=== PATIENT | female | born 1995 | race Caucasian/White ===

== ENCOUNTER 2017-12-26 07:10 | Inpatient (IN) | payer MEDICAID, SELFPAY ==
[2017-12-26 07:43] VITALS: BMI 30.2
[2017-12-26] MEDS: Lactated Ringers 1,000 ML 50 ML IV ×3 (08:17→18:47)
[2017-12-26 08:29] LABS: Hematocrit 36.9 % (37-47); Hemoglobin 13.1 g/dl (12.0-15.0); Mean Corp Hgb Conc 35.5 g/gl (32-36); Mean Corpuscular Hgb 32.9 pg (27.0-32.0); Mean Corpuscular Volume 92.7 fL (81-99); Mean Platelet Vol. 8.8 fl (6.2-12.0); Platelet Count 151 K/mm3 (150-450); RBC Distribution Width CV 13.4 % (11.6-14.6); RBC Distribution Width SD 44.6 fl (35.1-43.9); Red Blood Count 3.98 M/mm3 (4.2-5.4); White Blood Count 10.1 K/mm3 (4.4-11.0)
[2017-12-26 08:32] LABS: Scan Indicated on CBC? Y/N NO
[2017-12-26] MEDS: 0.9% Normal Saline 100 ML IV.SOLN. INTRA-UTER (10:10)
--- NOTE | 2017-12-26 10:14 | PCM.HP.OB ---
- Problem List (1) Status: Acute Qualifiers: Weeks of gestation: 40 weeks Qualified Code(s): Z3A.40 - 40 weeks gestation of (2) Genital herpes affecting in third trimester Status: Acute (3) PROM (premature rupture of membranes) Status: Acute History Date of Admission: 12/26/17 Final VIRAL: 12/25/17 Gestational age: 40 Weeks and 1 Days History of this : 22 year old female. at 40w1d by LMP, confirmed by first trimester ultrasound. Presented to L&D after SROM at home for large amount of clear fluid at 0550 this am. Denied any contractions prior to rupture or vaginal bleeding. After rupture started having contractions that were mild and infrequent. Here with FOB walking halls. Upon admission grossly rupture for clear fluid and admitted to L&D. OB Hx: History of genital herpes, no active infection, Acyclovir prophylaxis. Allergies No Known Allergies Allergy (Verified 12/26/17 07:53) Current Medications Acetaminophen (Tylenol) 325 - 650 mg PO Q4H PRN PRN PRN Reason: PAIN OR FEVER >100.4F Al Hydroxide/Mg Hydroxide (Mylanta Ii) 15 - 30 ml PO Q4H PRN PRN PRN Reason: INDIGESTION Citric Acid/Sodium Citrate (Bicitra) 30 ml PO UD PRN Lactated Ringer's () 1,000 mls @ 50 mls/hr IV .Q20H [facility] Last Admin: 12/26/17 08:17 Dose: 50 mls/hr Nalbuphine HCl (Nubain) 5 - 10 mg IV Q3H PRN PRN PRN Reason: PAIN (4-10/10) Ondansetron HCl (Zofran) 4 mg IV Q8H PRN PRN PRN Reason: NAUSEA Promethazine HCl (Phenergan (Ll)) 6.25 - 12.5 mg IV Q4H PRN PRN; Protocol PRN Reason: IF NAUSEA PERSISTS Sodium Chloride () 5 - 15 ml IV UD [facility] Last Admin: 12/26/17 09:49 Dose: Not Given Review of Systems Constitutional: Denies: Chills, Fever, Weight Change Cardiovascular: Denies: Chest Pain, Palpitations Respiratory: Denies: Cough, Shortness of breath at rest, Sputum production Gastrointestinal: Denies: Abdominal Pain, Nausea, Vomiting Genitourinary: Denies: Dysuria Physical Exam Vitals: Labs: HBsAG negative HIV negative Rubella Immune A positive, antibody screen negative RPR negative GC/CT negative Placenta anterior fundal General: Alert, Oriented x3, No apparent distress Cardiovascular: Regular rate, Regular Rhythm, No murmurs Lungs: Clear to auscultation, No rhonchi, No wheeze Abdomen: Bowel Sounds Present, Gravid Extremities:: No edema, Deep tendon reflexes - +2/4 bilateral patellar, clonus negative Presentation: Cephalic Cervix Dilation (cm): 2 - Ba bulb catheter placed with sterile speculum exam. Cephalic by U/S Station: -3 Assessment/Plan Active and Suspected Problems (Acute) Genital herpes affecting in third trimester (Acute) Genital herpes affecting , antepartum (Acute) PROM (premature rupture of membranes) (Acute) A: 22 year old at 40w1d by LMP in Early Labor Premature Rupture of membranes FHT Category 1 Tracing History of Genital Herpes P: 1)Admit to L&D for routine orders. 2) Ba catheter for cervical ripening due to PROM. Reviewed risks and benefits. Discussed Active vs. expectant management with PROM, risks and benefits. At this time patient would like to wait for Pitocin augmentation and declines. 3) Planning epidural for pain management 4) Acyclovir 400mg PO BID for HSV prophylaxis. Will continue. No active lesions present 5) notified of admission and collaborative physician Renetta Mullins CNM
--- NOTE | 2017-12-26 10:26 | HP.PCM_ITS ---
- Problem List (1) Status: Acute Qualifiers: Weeks of gestation: 40 weeks Qualified Code(s): Z3A.40 - 40 weeks gestation of (2) Genital herpes affecting in third trimester Status: Acute (3) PROM (premature rupture of membranes) Status: Acute History Date of Admission: 12/26/17 Final VIRAL: 12/25/17 Gestational age: 40 Weeks and 1 Days History of this : 22 year old female. at 40w1d by LMP, confirmed by first trimester ultrasound. Presented to L&D after SROM at home for large amount of clear fluid at 0550 this am. Denied any contractions prior to rupture or vaginal bleeding. After rupture started having contractions that were mild and infrequent. Here with FOB walking halls. Upon admission grossly rupture for clear fluid and admitted to L&D. OB Hx: History of genital herpes, no active infection, Acyclovir prophylaxis. Allergies No Known Allergies Allergy (Verified 12/26/17 07:53) Current Medications Acetaminophen (Tylenol) 325 - 650 mg PO Q4H PRN PRN PRN Reason: PAIN OR FEVER >100.4F Al Hydroxide/Mg Hydroxide (Mylanta Ii) 15 - 30 ml PO Q4H PRN PRN PRN Reason: INDIGESTION Citric Acid/Sodium Citrate (Bicitra) 30 ml PO UD PRN Lactated Ringer's () 1,000 mls @ 50 mls/hr IV .Q20H [facility] Last Admin: 12/26/17 08:17 Dose: 50 mls/hr Nalbuphine HCl (Nubain) 5 - 10 mg IV Q3H PRN PRN PRN Reason: PAIN (4-10/10) Ondansetron HCl (Zofran) 4 mg IV Q8H PRN PRN PRN Reason: NAUSEA Promethazine HCl (Phenergan (Ll)) 6.25 - 12.5 mg IV Q4H PRN PRN; Protocol PRN Reason: IF NAUSEA PERSISTS Sodium Chloride () 5 - 15 ml IV UD [facility] Last Admin: 12/26/17 09:49 Dose: Not Given Review of Systems Constitutional: Denies: Chills, Fever, Weight Change Cardiovascular: Denies: Chest Pain, Palpitations Respiratory: Denies: Cough, Shortness of breath at rest, Sputum production Gastrointestinal: Denies: Abdominal Pain, Nausea, Vomiting Genitourinary: Denies: Dysuria Physical Exam Vitals: Labs: HBsAG negative HIV negative Rubella Immune A positive, antibody screen negative RPR negative GC/CT negative Placenta anterior fundal General: Alert, Oriented x3, No apparent distress Cardiovascular: Regular rate, Regular Rhythm, No murmurs Lungs: Clear to auscultation, No rhonchi, No wheeze Abdomen: Bowel Sounds Present, Gravid Extremities:: No edema, Deep tendon reflexes - +2/4 bilateral patellar, clonus negative Presentation: Cephalic Cervix Dilation (cm): 2 - Ba bulb catheter placed with sterile speculum exam. Cephalic by U/S Station: -3 Assessment/Plan Active and Suspected Problems (Acute) Genital herpes affecting in third trimester (Acute) Genital herpes affecting , antepartum (Acute) PROM (premature rupture of membranes) (Acute) A: 22 year old at 40w1d by LMP in Early Labor Premature Rupture of membranes FHT Category 1 Tracing History of Genital Herpes P: 1)Admit to L&D for routine orders. 2) Ba catheter for cervical ripening due to PROM. Reviewed risks and benefits. Discussed Active vs. expectant management with PROM, risks and benefits. At this time patient would like to wait for Pitocin augmentation and declines. 3) Planning epidural for pain management 4) Acyclovir 400mg PO BID for HSV prophylaxis. Will continue. No active lesions present 5) notified of admission and collaborative physician Renetta Mullins CNM
[2017-12-26] MEDS: fentaNYL-bupivacaine (epidural) 100 ML BAG EPIDURAL ×2 (15:57→22:30)
[2017-12-26] MEDS: Ondansetron 4 MG/2 ML Vial IV (17:34)
--- NOTE | 2017-12-26 21:44 | PCM.PN.OB ---
Patient Problems: Active and Suspected Problems (Acute) Genital herpes affecting in third trimester (Acute) Genital herpes affecting , antepartum (Acute) PROM (premature rupture of membranes) (Acute) Subjective: Doing well throughout the day, rested. FOB and family at bedside. Comfortable with epidural Objective: FHT:135, moderate variability, accels, variable decel, Category 2 TOCO: every 2-4 minutes, strong to palpation, lasting 60-80 seconds Cervix: 7cm/90%/-1 - Physical Exam Weight: 187 lb 6.287 oz Body Mass Index (BMI) 30.2 Intake and Output for Last 24 Hours 12/24/17 12/25/17 12/26/17 23:59 23:59 23:59 Intake Total 2663 / 2663 Output Total 2200 / 2200 Balance 463 / 463 Laboratory Tests Past 24 Hrs 12/26/17 12/26/17 08:17 08:17 WBC 10.1 RBC 3.98 L Hgb 13.1 Hct 36.9 L MCV 92.7 MCH 32.9 H MCHC 35.5 RDW 13.4 RDW Differential 44.6 H Plt Count 151 MPV 8.8 Blood Type A POSITIVE Antibody Screen NEGATIVE Medical Necessity - Tobacco Use Smoking Status: Never smoker Assessment/Plan Active and Suspected Problems (Acute) Genital herpes affecting in third trimester (Acute) Genital herpes affecting , antepartum (Acute) PROM (premature rupture of membranes) (Acute) A:Active Labor, progressing Category 2 FHT P: 1) Continue with expectant management. Patient declines Pitocin augmentation 2) Epidural effective 3) Side lying release and positional changes with peanut ball
[2017-12-27] VITALS (20 sets, daily range): BP systolic 101–128; BP diastolic 46–78; PULSE 75–122; RESP 16–22; TEMP 35.8–36.8; O2SAT 95–99
[2017-12-27] MEDS: fentaNYL-bupivacaine (epidural) 100 ML BAG EPIDURAL ×2 (01:58→07:58)
--- NOTE | 2017-12-27 04:48 | PCM.PN.OB ---
Patient Problems: Active and Suspected Problems (Acute) Genital herpes affecting in third trimester (Acute) Genital herpes affecting , antepartum (Acute) PROM (premature rupture of membranes) (Acute) Subjective: Sitting up and resting in bed, comfortable with epidural. Family at bedside. Objective: FHT 135, minimal variability, accels, no decels, Category 1 TOCO: every 1-4 minutes, strong Cervix: Anterior lip/100%/0 - Physical Exam Weight: 187 lb 6.287 oz Body Mass Index (BMI) 30.2 Intake and Output for Last 24 Hours 12/25/17 12/26/17 12/27/17 23:59 23:59 23:59 Intake Total 2663 / 2663 Output Total 2200 / 2200 Balance 463 / 463 Laboratory Tests Past 24 Hrs 12/26/17 12/26/17 08:17 08:17 WBC 10.1 RBC 3.98 L Hgb 13.1 Hct 36.9 L MCV 92.7 MCH 32.9 H MCHC 35.5 RDW 13.4 RDW Differential 44.6 H Plt Count 151 MPV 8.8 Blood Type A POSITIVE Antibody Screen NEGATIVE Medical Necessity - Tobacco Use Smoking Status: Never smoker Assessment/Plan Active and Suspected Problems (Acute) Genital herpes affecting in third trimester (Acute) Genital herpes affecting , antepartum (Acute) PROM (premature rupture of membranes) (Acute) A: Active Labor, progressing Category 1 FHT P: 1) Expectant management. Anticipate vaginal delivery soon. 2) Positional changes
[2017-12-27] MEDS: Lactated Ringers 1,000 ML 50 ML IV ×3 (05:29→07:21)
--- NOTE | 2017-12-27 05:55 | PCM.PN.OB ---
Patient Problems: Active and Suspected Problems (Acute) Genital herpes affecting in third trimester (Acute) Genital herpes affecting , antepartum (Acute) PROM (premature rupture of membranes) (Acute) Subjective: Resting in bed. Family at bedside. Feeling slight pressure. Objective: Temperature 99.4 Cervix: complete/0 TOCO: every 2-3 minutes FHT: 165, moderate variability, accels, late decels after pushing - Physical Exam Weight: 187 lb 6.287 oz Body Mass Index (BMI) 30.2 Intake and Output for Last 24 Hours 12/25/17 12/26/17 12/27/17 23:59 23:59 23:59 Intake Total 2663 / 2663 Output Total 2200 / 2200 Balance 463 / 463 Laboratory Tests Past 24 Hrs 12/26/17 12/26/17 08:17 08:17 WBC 10.1 RBC 3.98 L Hgb 13.1 Hct 36.9 L MCV 92.7 MCH 32.9 H MCHC 35.5 RDW 13.4 RDW Differential 44.6 H Plt Count 151 MPV 8.8 Blood Type A POSITIVE Antibody Screen NEGATIVE Medical Necessity - Tobacco Use Smoking Status: Never smoker Assessment/Plan Active and Suspected Problems (Acute) Genital herpes affecting in third trimester (Acute) Genital herpes affecting , antepartum (Acute) PROM (premature rupture of membranes) (Acute) A:Active Labor, second stage Category 2 FHT P: 1) Anticipate vaginal delivery soon 2) Positional changes with pushing
--- NOTE | 2017-12-27 06:28 | PCM.PN.OB ---
Patient Problems: Active and Suspected Problems (Acute) Genital herpes affecting in third trimester (Acute) Genital herpes affecting , antepartum (Acute) PROM (premature rupture of membranes) (Acute) Subjective: Positional changes side to side while pushing. O2 via face mask. Family at bedside. Objective: Temp 100.2 FHT: 175, minimal variability, periodic late decelerations TOCO: every 1-3 minutes, strong variability Cervix: complete and pushing, 0 station 02 via face mask. 500ml LR bolus - Physical Exam Weight: 187 lb 6.287 oz Body Mass Index (BMI) 30.2 Intake and Output for Last 24 Hours 12/25/17 12/26/17 12/27/17 23:59 23:59 23:59 Intake Total 2663 / 2663 Output Total 2200 / 2200 Balance 463 / 463 Laboratory Tests Past 24 Hrs 12/26/17 12/26/17 08:17 08:17 WBC 10.1 RBC 3.98 L Hgb 13.1 Hct 36.9 L MCV 92.7 MCH 32.9 H MCHC 35.5 RDW 13.4 RDW Differential 44.6 H Plt Count 151 MPV 8.8 Blood Type A POSITIVE Antibody Screen NEGATIVE Medical Necessity - Tobacco Use Smoking Status: Never smoker Assessment/Plan Active and Suspected Problems (Acute) Genital herpes affecting in third trimester (Acute) Genital herpes affecting , antepartum (Acute) PROM (premature rupture of membranes) (Acute) A: Active Labor, second stage Category 2 FHT P: 1) notified of elevated temperature, Category 2 tracing with tachycardia and late decelerations. Membranes ruptured 25hr. 2) Tylenol 1000mg PO once 3) Continue 02 via face mask and 500ml bolus LR IV 4) Epidural turned off due to decreased pushing effort and not feeling pressure during pushing efforts. Patient agrees with plan.
[2017-12-27] MEDS: Acetaminophen 500 MG Tablet 1000 MG PO (06:34)
--- NOTE | 2017-12-27 09:00 | PCM.PN.BLA ---
Progress Note Addendum: No descent noted with pushing effort. Persistent retractible thin cervical lip noted. Patient requesting LTCS at this time. Dr. Garg notified. Patient being prepped for LTCS. Transfer of care to medical management. Hemalatha Ty CNM
--- NOTE | 2017-12-27 09:03 | PCM.PN.BLA ---
Progress Note S: Patient coping well with contractions. Patient continues to use nitrous oxide for pain relief. Starting to feel urge to bear down and push. O: VSS, Afebrile FHT baseline 130, moderate variability, + accels, variable and early decels occasionally Ctx q 3-5 minutes, palpate moderate to strong SVE = 7-8/90/-1, AROM for meconium fluid A: 22 y/o , Transition stage of labor, Cat I-II FHT P: 1) Continue with present management 2) Anticipate . Hemalatha MILES
[2017-12-27] MEDS: Sodium Citrate/Citric Acid 30 ML UDC PO (09:11)
--- NOTE | 2017-12-27 09:12 | PN_ITS ---
Progress Note pt was seen at bedside, counseled on arrest of descent- deep transverse positions with significant caput noted. pt was counseled on need for primary c/ s at this time. reviewed risks of primary cs including but not limted to bleeding, infection, injury to pelvic structures including bladder, bowel, ureters, risks of cervical extension etc. pt verbalized understanding.
[2017-12-27] MEDS: Cefazolin 2 GM in 0.9% Normal Saline 100 ML IV (09:26)
[2017-12-27] MEDS: Methylergonovine 0.2 MG/ML Ampul IM (09:33)
[2017-12-27] MEDS: Oxytocin 30 units/NS 500 ml 30 UNITS/500 ML IV.SOLN 167 UNITS IV (09:41)
--- NOTE | 2017-12-27 10:14 | OP.PCM_ITS ---
Delivery Classification: ABE Final VIRAL: 12/25/17 Gestational age: 40 Weeks and 2 Days Indications: 22yo @ 40.2 wks with arrest of descent - deep transverse arrest with caput. Indications for : Arrrest of Descent Description of Procedure: Surgeon: Dr. Omayra Roberts Practical Nursing Faculty: MAHIN Becker Practical Nursing Faculty: Renetta Arizmendi, MS3 Preoperative diagnosis: 40.2 wks gestation-arrest of descent, deep transverse arrest Postoperative diagnosis: same, live male Findings: push up from below needed to disengage head. Male born without complications- 9lb 7oz. apgars 8/9 Anesthesia: Epidural and General anesthesia Complications: Patient feeling pain - inadequate pain relief with epidural in place- decision for general anesthesia made. uterine atony w/o hemorrhage - Methergine x 1 given. Estimated blood loss:800 Implantable devices: None PRE OP abx: Ancef 2g and zithromax 500mg IV Operative note: After informed consent was obtained the patient was taken the operating room she was given spinal anesthesia. She was then placed in the supine position. She was prepped and draped in the normal sterile fashion. Anesthesia was found to be adequate. At this time a Pfannenstiel skin incision was made with a knife was carried down to the underlying layer of the fascia. The fascial incision was then extended laterally using curved Munoz scissor. Tensions was then turned to the superior aspect of the fascial edge was grasped with 2 straight [place] clamps tented up and the rectus muscle dissected off sharply using curved Munoz scissor. Attention was then turned to the inferior aspect where again Isaiah clamps were placed in the rectus muscles were tented up and the fascia was dissected off sharply using the curved Munoz scissor. Rectus muscles were then in the midline bluntly and peritoneum was entered bluntly. Gentle opposing traction was placed. At this time the vesicouterine peritoneum was identified. Scalpel was used to make a uterine incision in a low transverse fashion. The uterus was then entered bluntly gentle opposing traction was placed to extend this incision. Push up from below to disengage head. 's head was brought to the uterine incision was delivered atraumatically. Cord was clamped and cut infant was handed to the waiting nursery team. The Placenta was removed from the uterus. The uterus was then removed from the abdominal cavity. The uterus was cleared of all clots and debris using a lap. uterine atony noted- methergine x 1 given with good response. At this time the uterine incision was reapproximated using #1 Vicryl in a running locked fashion. Hemostasis was appreciated. Posterior cul-de-sac was then cleared of all clots and debris. Uterus was placed back in the abdominal cavity. Gutters were cleared of all clots and debris. Uterine incision was reevaluated and noted to be of excellent hemostasis. Vish placed. At this time the peritoneum was grasped with Kellys reapproximated using #2 Vicryl suture in a running fashion. Muscles then reapproximated using #2 Vicryl in a interrupted mattress suture fashion. Vish placed. Fascia was then reapproximated using #1 Vicryl in a running fashion. Subcu layer was reapproximated with #2 0 plain gut suture in an interrupted fashion. Subcu layer was closed using 4-0 Monocryl in a subcu fashion. Vish placed. Dry sterile dressing was applied. Instrument lap needle count correct ?2. Anticipated normal postoperative course. Amniotic Membrane Rupture Type: Artificial Amniotic Fluid Description: Clear Placenta Disposition: [facility] Drain: Ba to straight drain Cord Entanglement: None Nuchal Cord Compression: Without compression Cord Vessel Description: 3 Vessels Esitmated Blood Loss (ml): 800 Gender: Male (1 minute): 8 (5 minute): 9 Delayed cord clamping: No Pre-op Antibiotic Given: - - zithromax 500mg IV Pt instructed on risks of surgery: Bleeding, Anesthesia Risks, Infection, Injury to surrounding structure(s) including bowel and bladder Complications: None - Admit VTE Documentation VTE Present on Admission: Yes VTE Mechan Device Prophylaxis: SCD's VTE Pharm Prophylaxis ordered?: No
[2017-12-27] MEDS: Ketorolac 30 MG/ML Syringe IV ×3 (10:20→21:57)
[2017-12-27] MEDS: Lactated Ringers 1,000 ML 100 ML IV ×2 (10:30→19:21)
--- NOTE | 2017-12-27 14:16 | NURSING ---
This director of emergency nursing reviewed the charting completed by Maribell Olvera student nurse and it is complete.
[2017-12-27] MEDS: Senna/Docusate Sodium 1 Tablet PO (22:02)
[2017-12-28] VITALS (8 sets, daily range): BP systolic 108–122; BP diastolic 55–68; PULSE 76–116; RESP 16–20; TEMP 36.3–37.4; O2SAT 96–100
[2017-12-28] MEDS: Ketorolac 30 MG/ML Syringe IV ×3 (03:23→23:50)
[2017-12-28 05:01] LABS: Hematocrit 28.9 % (37-47); Hemoglobin 10.1 g/dl (12.0-15.0); Mean Corp Hgb Conc 34.9 g/gl (32-36); Mean Corpuscular Hgb 33.3 pg (27.0-32.0); Mean Corpuscular Volume 95.4 fL (81-99); Mean Platelet Vol. 8.3 fl (6.2-12.0); Platelet Count 107 K/mm3 (150-450); RBC Distribution Width CV 13.4 % (11.6-14.6); RBC Distribution Width SD 44.4 fl (35.1-43.9); Red Blood Count 3.03 M/mm3 (4.2-5.4); White Blood Count 15.1 K/mm3 (4.4-11.0)
[2017-12-28 05:02] LABS: Scan Indicated on CBC? Y/N NO
--- NOTE | 2017-12-28 08:05 | PCM.PN.OB ---
Patient Problems: Active and Suspected Problems (Acute) Genital herpes affecting in third trimester (Acute) Genital herpes affecting , antepartum (Acute) PROM (premature rupture of membranes) (Acute) Subjective: pt seen at bedside, doing well. pt reports good pain control. lochia mild. pt denies flatus. pt denies N/V, CP, SOB, dizziness. Breast feeding well - Physical Exam General: Alert, Oriented x3 Abdomen: Soft, Non-Distended, - - fundus firm. incision dressing dry and intact Extremities: No Calf Tenderness Vital Signs Temp Pulse Resp BP Pulse Ox 98.2 F 76 18 108/56 L 98 12/28/17 04:00 12/28/17 06:00 12/28/17 06:00 12/28/17 04:00 12/28/17 06:00 Oxygen Delivery Method Room Air Weight: 85 kg Body Mass Index (BMI) 30.2 Intake and Output for Last 24 Hours 12/26/17 12/27/17 12/28/17 23:59 23:59 23:59 Intake Total 2663 / 2663 2878 / 2878 Output Total 2200 / 2200 1974 / 1974 800 / 800 Balance 463 / 463 903 / 903 -800 / -800 Laboratory Tests Past 24 Hrs 12/28/17 04:50 WBC 15.1 H RBC 3.03 L Hgb 10.1 L Hct 28.9 L MCV 95.4 MCH 33.3 H MCHC 34.9 RDW 13.4 RDW Differential 44.4 H Plt Count 107 L MPV 8.3 Medical Necessity - Tobacco Use Smoking Status: Never smoker Assessment/Plan Active and Suspected Problems (Acute) Genital herpes affecting in third trimester (Acute) Genital herpes affecting , antepartum (Acute) PROM (premature rupture of membranes) (Acute) POD#1, doing well routine care pain mgmt dc mckeon ambulation
[2017-12-28] MEDS: 0.9% Saline Lock 10 ML Syringe IV (10:58)
[2017-12-28] MEDS: oxyCODONE 5 MG Tablet PO ×3 (11:38→22:38)
--- NOTE | 2017-12-28 11:55 | NURSING ---
1115 mckeon out 200 cc urine, up to bathroom nely care done
[2017-12-29 01:45] VITALS: BP 111/57; PULSE 96; RESP 16; TEMP 36.3; O2SAT 96
[2017-12-29] MEDS: oxyCODONE 5 MG Tablet PO ×5 (03:57→22:03)
[2017-12-29] MEDS: Ketorolac 30 MG/ML Syringe IV (05:28)
[2017-12-29] MEDS: Senna/Docusate Sodium 1 Tablet PO (05:44)
--- NOTE | 2017-12-29 08:18 | PCM.PN.OB ---
Patient Problems: Active and Suspected Problems (Acute) Genital herpes affecting in third trimester (Acute) Genital herpes affecting , antepartum (Acute) PROM (premature rupture of membranes) (Acute) Subjective: pt seen at bedside, doing well. pt reports good pain control. Lochia mild. Voiding without difficulty. BM x 2. Breast feeding well. - Physical Exam General: Alert, Oriented x3 Abdomen: Soft, - - fundus firm. Incision site dressing dry and intact. Extremities: No Calf Tenderness Vital Signs Temp Pulse Resp BP Pulse Ox 97.4 F L 96 16 111/57 L 96 12/29/17 01:45 12/29/17 01:45 12/29/17 01:45 12/29/17 01:45 12/29/17 01:45 Oxygen Delivery Method Room Air Weight: 85 kg Body Mass Index (BMI) 30.2 Intake and Output for Last 24 Hours 12/27/17 12/28/17 12/29/17 23:59 23:59 23:59 Intake Total 2878 / 2878 Output Total 1974 1300 / 1300 600 / 600 Balance 903 / 903 -1300 / -1300 -600 / -600 Medical Necessity - Tobacco Use Smoking Status: Never smoker Assessment/Plan Active and Suspected Problems (Acute) Genital herpes affecting in third trimester (Acute) Genital herpes affecting , antepartum (Acute) PROM (premature rupture of membranes) (Acute) POD#2, doing well routine care pain mgmt ambulation likely dc home tmrw
--- NOTE | 2017-12-29 08:28 | DCINST_ITS ---
Discharge Diet: No Restrictions Discharge Activity: Return to Normal Activity, May Not Drive - for 2 weeks, May not drive while taking narcotic pain medications., May Shower, May Take a Tub Bath - in 7 days. May resume sexual activity in: 4-6 weeks Lifting Restrictions: 20 pounds Additional Activity Instructions:: Nothing in the vagina for 4-6 weeks. You may return to work/school in 6 weeks. Call your doctor if your incision/area has: Continuous Slow Oozing, Sudden Increased Bleeding, Increased Pain/ Swelling, Increased Redness, Foul Smelling Discharge Call your doctor if you observe: Fever of 101 or Higher, Using more than one pad per hour - for 2 hours Suture Line Care: Avoid Pulling/Pushing, Avoid Pinching/Bending Cleanse incision/area with: Keep Dressing Clean & Dry Additional Instructions: If you experience any of the following, contact your healthcare provider. * Bleeding that soaks a pad every hour for 2 hours * Fever 100.4 or higher * Unrelieved incision or abdominal pain * Swelling, redness, discharge or bleeding from your incision or episiotomy site * Your incision begins to separate * Problems urinating (including inability to urinate or burning while urinating) . * Visual changes * Severe headache * Flu-like symptoms * Pain or redness in one of both of your breasts * Pain, warmth, tenderness or swelling in your legs, especially the calf area * Frequent nausea and vomiting * Symptoms of depression or anxiety If you experience any of the following, call 911 or go to the nearest Emergency Room. * Chest pain * Problems breathing * Seizure activity * Partial or complete paralysis of a body part, slurred speech, weakness or drooping of the face, or a sudden inability to walk or hold your balance Allergies/Adverse Reactions: Allergies No Known Allergies Allergy (Verified 12/26/17 07:53) Medications to take at Discharge Acyclovir 400 mg PO BID 12/26/17 Albuterol Inhaler [Ventolin Hfa] 1 inhaler INHALATION PRN PRN 12/26/17 Vit Calc,Iron,Folic [ Vitamins] 1 tab PO DAILY 12/26/17 Naproxen [Naprosyn] 250 - 500 mg PO Q8H PRN PRN #60 tab 12/29/17 Oxycodone HCl/Acetaminophen [Percocet 5/325] 1 tablet PO Q6H PRN PRN 7 Days #28 tablet 12/29/17 Senna/Docusate Sodium [Senokot-S] 1 tab PO DAILY PRN #30 tab 12/29/17 SimETHICONE [Mylicon] 80 mg PO PCHS PRN #30 tab 12/29/17 The following prescriptions were given: Oxycodone HCl/Acetaminophen [Percocet 5/325] 1 tablet PO Q6H PRN PRN 7 Days #28 tablet PRN Reason: Pain Naproxen [Naprosyn] 250 - 500 mg PO Q8H PRN PRN #60 tab PRN Reason: Mild Pain (-12/18) Senna/Docusate Sodium [Senokot-S] 1 tab PO DAILY PRN #30 tab PRN Reason: Constipation SimETHICONE [Mylicon] 80 mg PO PCHS PRN #30 tab PRN Reason: Indigestion/stomach pain Follow-Up: Call to make an appointment with your doctor for an incision check in 1-2 weeks. You will also need a 6 week post- follow up appointment. Please Follow Up With: Omayra Roberts MD - Call to make an appointment for an incision check in 1-2 [phone] When: You will need a post- check in 6 weeks. Primary Care Physician: Emily Herman,Out of [Primary Care Provider] -
[2017-12-29 08:54] VITALS: BP 116/64; PULSE 99; RESP 16; TEMP 36.6; O2SAT 99
[2017-12-29 13:24] VITALS: BP 127/73; PULSE 110; RESP 16; TEMP 36.7; O2SAT 98
[2017-12-29] MEDS: Hydrocortisone 2.5% Crm 1 APPLIC TOPICAL (16:49)
[2017-12-29 21:15] VITALS: BP 131/80; PULSE 113; RESP 18; TEMP 36.2
[2017-12-29] MEDS: Naproxen 250 MG Tablet PO (22:02)
[2017-12-30 02:00] VITALS: BP 115/61; PULSE 92; RESP 16; TEMP 36.2
--- NOTE | 2017-12-30 07:23 | PCM.PN.OB ---
Patient Problems: Active and Suspected Problems (Acute) Genital herpes affecting in third trimester (Acute) Genital herpes affecting , antepartum (Acute) PROM (premature rupture of membranes) (Acute) Subjective: pt seen at bedside, doing well. pt reports good pain control. lochia mild. breast feeding. denies CP, SOB, dizziness. - Physical Exam General: Alert, Oriented x3 Abdomen: Soft, - - Fundus firm, incision site dry and intact. Extremities: No Calf Tenderness Vital Signs Temp Pulse Resp BP Pulse Ox 97.2 F L 92 16 115/61 98 12/30/17 02:00 12/30/17 02:00 12/30/17 02:00 12/30/17 02:00 12/29/17 13:24 Oxygen Delivery Method Room Air Weight: 85 kg Body Mass Index (BMI) 30.2 Intake and Output for Last 24 Hours 12/28/17 12/29/17 12/30/17 23:59 23:59 23:59 Output Total 1300 / 1300 600 / 600 Balance -1300 / -1300 -600 / -600 Medical Necessity - Tobacco Use Smoking Status: Never smoker Assessment/Plan Active and Suspected Problems (Acute) Genital herpes affecting in third trimester (Acute) Genital herpes affecting , antepartum (Acute) PROM (premature rupture of membranes) (Acute) POD#3, doing well routine care dc home
--- NOTE | 2017-12-30 07:24 | PCM.DC.BLA ---
Discharge Summary Date of Admission: 12/26/17 Date of Discharge: 12/30/17 Summary: pt was admitted to L&D with SROM at 40.1 wks gestation. pt progressed to fully dilated and pushed for approximately 3.5 hours intermittently with arrest of descent in deep transverse arrest. pt underwent primary cs that was uncomplicated. Delivered live infant weighing 9lb7oz. pt had uncomplicated post op course and was discharged home on POD#3.
[2017-12-30 08:00] VITALS: BP 116/65; PULSE 105; RESP 16; TEMP 36.1; O2SAT 97
[2017-12-30] MEDS: Senna/Docusate Sodium 1 Tablet PO (08:24)
[2017-12-30] MEDS: Acetaminophen 500 MG Tablet 1000 MG PO (08:24)
[2017-12-30 11:00] VITALS: BP 128/71; PULSE 105; RESP 16; TEMP 36.1; O2SAT 95
== END 2017-12-30 11:20 | disposition home or self-care (01) | DRG 371 ==
PROVIDERS: Obstetrics & Gynecology; Admitting Provider Obstetrics & Gynecology; Visit Provider Obstetrics & Gynecology
DX: O42.12 Full-term premature rupture of membranes, onset of labor more than 24 hours following rupture (principal); O98.32 Other infections with a predominantly sexual mode of transmission complicating childbirth; A60.00 Herpesviral infection of urogenital system, unspecified; O76 Abnormality in fetal heart rate and rhythm complicating labor and delivery; O77.0 Labor and delivery complicated by meconium in amniotic fluid; O64.0XX0 Obstructed labor due to incomplete rotation of fetal head, not applicable or unspecified; O75.89 Other specified complications of labor and delivery; Z79.899 Other long term (current) drug therapy; Z3A.40 40 weeks gestation of pregnancy; Z37.0 Single live birth
CPT/HCPCS: 59025; 59050; 76815; 85027; 86850; 86900; 99218; J7120; A4216; G0378; J2405

== ENCOUNTER 2018-01-01 13:10 | Outpatient (CLI) | payer MEDICAID, SELFPAY ==
--- NOTE | 2018-01-01 14:39 | OB.TRI.HP_ITS ---
History of Present Illness Date of Service: 01/01/18 Was patient seen by the physician?: Yes Reason For Visit: LACT CONSULTATION History of Present Illness: Patient presents with LE & labial swelling. She states it got worse overnight. Patient is having regular BM's. Her VB is stable. Home Medications Medication Instructions Recorded Acyclovir 400 mg PO BID 12/26/17 Albuterol Inhaler [Ventolin Hfa] 1 inhaler INHALATION PRN PRN 12/26/17 Vit Calc,Iron,Folic 1 tab PO DAILY 12/26/17 [ Vitamins] Naproxen [Naprosyn] 250 - 500 mg PO Q8H PRN PRN #60 tab 12/29/17 Oxycodone HCl/Acetaminophen 1 tablet PO Q6H PRN PRN 7 Days #28 12/29/17 [Percocet 5/325] tablet Senna/Docusate Sodium [Senokot-S] 1 tab PO DAILY PRN #30 tab 12/29/17 SimETHICONE [Mylicon] 80 mg PO PCHS PRN #30 tab 12/29/17 Allergies No Known Allergies Allergy (Verified 12/26/17 07:53) Physical Exam General: Alert, Oriented x3 Abdomen: Soft, Non Tender, Non-Distended - macular rash on abdomen Extremities:: Other - pitting bilateral lower extremity edema; vulva - edema - left more swollen than right, tender to touch, no erythema, small clear papules , no ulcerarations; vaginal introitus normal Impression/Plan 22yo female with LE & vulvar swelling s/p 12/27 No evidence DVT as edema equal, no calf tenderness, negative homans. Vulvar swelling likely related to dependent edema. Rx acyclovir given as patient with papules & h/o genital HSV. This may be a atypical hsv presentation. Abdominal rash - likely irritation from drape, rx triamcinolone ointment given. Patient to call if swelling doesn't improve or develops other concerns.
== END 2018-01-01 14:10 | disposition home or self-care (01) ==
LOC: WPOUT 14:07 → WP 14:08
PROVIDERS: Visit Provider Obstetrics & Gynecology
DX: Z39.1 Encounter for care and examination of lactating mother (principal); O90.89 Other complications of the puerperium, not elsewhere classified; R60.0 Localized edema; O98.33 Other infections with a predominantly sexual mode of transmission complicating the puerperium; A60.00 Herpesviral infection of urogenital system, unspecified
CPT/HCPCS: 96152

== ENCOUNTER 2018-01-04 14:36 | Emergency (ER) | payer MEDICAID, SELFPAY ==
[2018-01-04 14:36] VITALS: BP 137/92; PULSE 94; RESP 16; TEMP 36.8; O2SAT 97; BMI 28.2
[2018-01-04 14:51] VITALS: BP 119/67; PULSE 78; RESP 16; O2SAT 98
--- NOTE | 2018-01-04 15:05 | CT_ITS ---
STUDY: CT ABDOMEN AND PELVIS WITH CONTRAST REASON FOR EXAM: Female, 22 years old. The absence of a wound. RADIATION DOSAGE (If Supplied By Facility): CTDIvol = ( 12.53 ) mGy, DLP = ( 926.18 ) mGycm TECHNIQUE: Transaxial images were obtained from the dome of the diaphragm to the symphysis pubis without oral contrast. 100 ml of Isovue 300 contrast was administered. Sagittal and coronal images were reconstructed. Individualized dose optimization techniques were used for this CT. COMPARISON: None. FINDINGS: The visualized lung bases are unremarkable. Small right pleural effusion. The visualized portions of the heart are within normal limits. Normal liver. Normal gallbladder and extrahepatic biliary system. Normal spleen. Normal pancreas. Normal bilateral adrenal glands. The right kidney is of normal size and cortical thickness. There is normal enhancement. There is a 2 mm nonobstructing calculus lower pole calyx. There is an extrarenal pelvis. There is mild ureterectasis to the pelvic brim where the ureter is compressed against the psoas muscle by the enlarged uterus. The left kidney demonstrates normal enhancement. There is a curvilinear 5 mm calculus lower pole calyx. There is mild hydronephrosis and ureterectasis to the pelvic brim where the ureter is compressed between the pelvic sidewall and enlarged uterus. Normal visualized stomach. Normal small intestine. Normal colon. The appendix is visualized and appears normal. Normal abdominal aorta. Normal inferior vena cava. Normal retroperitoneum. Normal urinary bladder. The uterus is markedly enlarged. There is air and mixed fluid and high density material in the lumen. The secondary to recent delivery. The ovaries are normal. There is no evidence of free air or free fluid within the peritoneal cavity. There is marked thickening of the lower abdominal wall with areas of high density thought to represent hemorrhage. There is also fluid between the rectus musculature and peritoneal viscera. There is mild stranding within the soft tissues with air consistent with Pfannenstiel. The air is most noted on the right which is thought to be the area of dehiscence. Normal osseous structures. CT/Abdomen/Pelvis W IV Cont ONLY IMPRESSION: 1. No evidence of Pfannenstiel incision. There is air and stranding in the right aspect of the wound site to be the area of dehiscence. 2. Hemorrhage and postsurgical changes within the adjacent lower abdominal wall. 3. Large postoperative uterus 4. Bilateral ureterectasis and left hydronephrosis due to compression of the ureters against the pelvic sidewall by the enlarged uterus. 5. Nonobstructing bilateral renal calculi. 6. Small right pleural effusion. Electronically Signed: Hardik Turner DO at 17:46 EDT Tel [phone], Service support ,
--- NOTE | 2018-01-04 15:10 | ED.VISSUMM ---
- ER Visit Summary Date of Service: 01/04/18 Chief Complaint: Wound check History of Present Illness: The patient is a 22 F who states that she had a after attempted vaginal delivery on December 27. Yesterday was noted to have redness around the incision was placed on Keflex by her station examiner Dr. Garg. Approximate 3 hours ago she had bleeding from the left lateral surgical wound. She was seen in the office the wound was drained and packed. It is felt to be hematoma. She was sent to the emergency room for CT scan. Patient reports no fevers. She is breast-feeding. She otherwise has no complaints. Physical Examination: Afebrile vital signs are stable Gen: Well-nourished well-developed Head: Normocephalic atraumatic Eyes: Perrl EOMI ENT: TMs clear no rhinorrhea moist mucous membranes Neck: Supple no lymphadenopathy no JVD nontender CVS: Regular rate rhythm no murmurs normal S1-S2 Respiratory: No distress clear to auscultation bilaterally chest nontender Abdomen: Soft nontender nondistended normal bowel sounds no masses is a incision the lower abdomen in the standard place. There is surrounding erythema of approximately 1 cm inferior and superior to the wound. Left lateral incision shows a area of packing. There is no expression of pus. Back: Nontender Extremity: Nontender no edema Skin: Normal color no rash Neuro: alert orientated ?3 CN II-XII intact normal strength sensation reflexes gait cerebellar Psych: Normal affect normal mood Test Results: CBC BMP and CT of the abdomen pelvis with IV contrast was obtained. Please see the CT radiologist read for details. Emergency Department Course and Treatment: The patient received IV fluids while CT scan results are being obtained. I reviewed the CT findings with Dr. Lemus. Our plan is to give the patient 2 g of Ancef IV. We will also add Bactrim to her Keflex for MRSA coverage. She is to see Dr. Felix on morning at 9 AM for wound check and packing change. She is to return if fever or worsening or concerns Impression: 1. Postoperative wound check-bleeding 2. Postoperative wound check-cellulitis This note was generated with [employer] software. It may contain incorrect words, spelling, and punctuation that were not noted in review of the chart prior to signing ED Disposition - Plan for ED Patient: Disposition: Home or Assisted Living Chief Complaint: Wound Check Instructions: ED Wound Check Post Op Bleeding Prescriptions: Smz/Tmp Ds [Bactrim Ds] 1 tab PO BID #20 tab Referrals: [facility] Doctor,Out of [Primary Care Provider] - Omayra Roberts MD [STAFF PHYSICIAN] - (Go to the office at 9 AM for wound check)
--- NOTE | 2018-01-04 15:14 | ED.DCSUM_ITS ---
- ER Visit Summary Date of Service: 01/04/18 Chief Complaint: Wound check History of Present Illness: The patient is a 22 F who states that she had a C- section after attempted vaginal delivery on December 27. Yesterday was noted to have redness around the incision was placed on Keflex by her bond manager Dr. Garg. Approximate 3 hours ago she had bleeding from the left lateral surgical wound. She was seen in the office the wound was drained and packed. It is felt to be hematoma. She was sent to the emergency room for CT scan. Patient reports no fevers. She is breast-feeding. She otherwise has no complaints. Physical Examination: Afebrile vital signs are stable Gen: Well-nourished well-developed Head: Normocephalic atraumatic Eyes: Perrl EOMI ENT: TMs clear no rhinorrhea moist mucous membranes Neck: Supple no lymphadenopathy no JVD nontender CVS: Regular rate rhythm no murmurs normal S1-S2 Respiratory: No distress clear to auscultation bilaterally chest nontender Abdomen: Soft nontender nondistended normal bowel sounds no masses is a C- section incision the lower abdomen in the standard place. There is surrounding erythema of approximately 1 cm inferior and superior to the wound. Left lateral incision shows a area of packing. There is no expression of pus. Back: Nontender Extremity: Nontender no edema Skin: Normal color no rash Neuro: alert orientated ?3 CN II-XII intact normal strength sensation reflexes gait cerebellar Psych: Normal affect normal mood Test Results: CBC BMP and CT of the abdomen pelvis with IV contrast was obtained. Please see the CT radiologist read for details. Emergency Department Course and Treatment: The patient received IV fluids while CT scan results are being obtained. I reviewed the CT findings with Dr. Lemus. Our plan is to give the patient 2 g of Ancef IV. We will also add Bactrim to her Keflex for MRSA coverage. She is to see Dr. Felix on morning at 9 AM for wound check and packing change. She is to return if fever or worsening or concerns Impression: 1. Postoperative wound check-bleeding 2. Postoperative wound check-cellulitis This note was generated with [employer]ation software. It may contain incorrect words, spelling, and punctuation that were not noted in review of the chart prior to signing ED Disposition - Plan for ED Patient: Disposition: Home or Assisted Living Chief Complaint: Wound Check Instructions: ED Wound Check Post Op Bleeding Prescriptions: Smz/Tmp Ds [Bactrim Ds] 1 tab PO BID #20 tab Referrals: [facility] Doctor,Out of [Primary Care Provider] - Omayra Roberts MD [STAFF PHYSICIAN] - (Go to the office at 9 AM for wound check)
[2018-01-04] MEDS: 0.9% Normal Saline 1,000 ML 1000 ML IV (15:30)
[2018-01-04 15:40] LABS: Absolute Lymphocyte Count 1.23 X10^3/ul (0.83-4.51); Absolute Neutrophil Count 14.3 X10^3/uL (2.0-7.7); Basophil# 0.01 X10^3/uL; Basophil% 0.1 % (0-1); Eosinophil# 0.06 X10^3/uL; Eosinophils% 0.4 % (0-5); Hematocrit 29.1 % (37-47); Hemoglobin 10.1 g/dl (12.0-15.0); Lymphocyte # 1.23 X10^3/ul (4.0); Lymphocyte % 7.5 % (19-41); Mean Corp Hgb Conc 34.7 g/gl (32-36); Mean Corpuscular Hgb 31.9 pg (27.0-32.0); Mean Corpuscular Volume 91.8 fL (81-99); Mean Platelet Vol. 8.1 fl (6.2-12.0); Monocyte# 0.55 X10^3/uL; Monocyte% 3.4 % (0-10); Neutrophil # 14.31 X10^3/uL (2.7-7.7); Neutrophil % 87.7 % (47-70); Platelet Count 334 K/mm3 (150-450); RBC Distribution Width CV 12.6 % (11.6-14.6); Red Blood Count 3.17 M/mm3 (4.2-5.4); White Blood Count 16.3 K/mm3 (4.4-11.0)
[2018-01-04 15:41] LABS: POSITIVE COUNT NO; POSITIVE DIFFERENTIAL NO; POSITIVE MORPHOLOGY NO
[2018-01-04 15:57] LABS: Anion Gap 12 (5-15); BUN 15 mg/dL (7-18); BUN/Creat Ratio 30.2 RATIO (10-20); Calcium,Total 8.1 mg/dL (8.5-10.1); Chloride 109 mmol/L (98-107); EST Glomerular Filtration Rate 168 mL/min (>60); Est Glom Filt Rate - Afr Amer 203 mL/min (>60); Estimated Creatinine Clearance 168.02 ml/min; Glucose 80 mg/dL (74-106); Sodium Level 141 mmol/L (136-145)
[2018-01-04 17:17] VITALS: BP 131/59; PULSE 68; RESP 19; O2SAT 98
[2018-01-04 19:00] VITALS: BP 125/67; PULSE 69; RESP 18; O2SAT 99
[2018-01-04] MEDS: Cefazolin 2 GM in 0.9% Normal Saline 100 ML IV (19:00)
[2018-01-04 19:01] VITALS: BP 125/67; PULSE 69; RESP 18; O2SAT 98
== END 2018-01-04 20:19 | disposition home or self-care (01) ==
PROVIDERS: Emergency Provider Emergency Medicine
DX: O86.0 Infection of obstetric surgical wound (principal); L03.311 Cellulitis of abdominal wall; O90.2 Hematoma of obstetric wound
CPT/HCPCS: 74177; 80048; 85025; 87070; 87205; 96361; 96365; 99283; J7030; J7050; Q9967; A4216

== ENCOUNTER 2019-05-26 05:35 | Inpatient (IN) | payer MEDICAID, SELFPAY ==
--- NOTE | 2019-05-23 11:50 | PCM.HP.BLA ---
History and Physical Date of Admission: 05/26/19 Omayra Garg Physician EXCELLENCE COACH H&P Signed Encounter Date: 05/23/2019 Expand All Collapse All Hide copied text Chni for details Anu Wright is a 23 year old female who presents for preop visit for scheduled elective repeat section. Patient is scheduled for repeat elective section on May 26, 2019 she'll be 39 weeks gestation. Patient declines a trial of labor she had a poor success rate. Patient denies any chest pain, shortness of breath, dizziness. Patient has had headaches over the last week. Denies any visual changes or right upper quadrant pain. Not tried Tylenol for her headaches. ? PAST?MEDICAL?HISTORY PAST MEDICAL HISTORY Diagnosis Date ? Exercise-induced asthma ? ? Herpes simplex virus (HSV) infection ? ? PAST?SURGICAL?HISTORY PAST SURGICAL HISTORY Procedure Laterality Date ? APPENDECTOMY ? ? ? DELIVERY ONLY ? 12/27/2017 ? FAMILY?HISTORY FAMILY HISTORY Problem Relation Age of Onset ? Psychiatry Mother ? ? anxiety ? Aneurysm Maternal Grandmother ? ? brain aneurysm ? SOCIAL?HISTORY Social History Socioeconomic History Marital status: Single Spouse name: Not on file Number of children: Not on file Years of education: 14 Highest education level: Not on file Occupational History Occupation: artillery or naval gunfire observer Employer: [employer] Social Needs Financial resource strain: Not on file Food insecurity: Worry: Not on file Inability: Not on file Transportation needs: Medical: Not on file Non-medical: Not on file Tobacco Use Smoking status: Never Smoker Smokeless tobacco: Never Used Substance and Sexual Activity Alcohol use: No Drug use: No Sexual activity: Yes Partners: Male Lifestyle Physical activity: Days per week: Not on file Minutes per session: Not on file Stress: Not on file Relationships Social connections: Talks on phone: Not on file Gets together: Not on file Attends confucianist service: Not on file Active member of club or organization: Not on file Attends meetings of clubs or organizations: Not on file Relationship status: Not on file Intimate partner violence: Fear of current or ex partner: Not on file Emotionally abused: Not on file Physically abused: Not on file Forced sexual activity: Not on file Other Topics Concerns: Not on file Social History Narrative Not on file ? CURRENT?MEDICATIONS ? Current Outpatient Medications: acyclovir (ZOVIRAX) 400 mg tablet Take 1 tablet by mouth twice daily. Suppressive therapy for duration of . Jrnnqkro-Be-Snw-Fe-FA ( VITAMIN) tab Take 1 tablet by mouth once daily. albuterol HFA (PROVENTIL HFA, VENTOLIN HFA) 90 mcg/actuation inhaler Inhale 2 Puffs as instructed. ? No current facility-administered medications for this visit. Allergies As of Date: 05/23/2019 (No Known Allergies) Fully Assessed 05/23/2019 ? ? REVIEW OF SYSTEMS Abdomen: no pain Bladder: no dysuria. Expanded ROS: GENERAL: Negative for fever Allergies and current medication updated:Yes ? EXAM: BP 104/60 Wt 178 lb (80.7kg) LMP 09/02/2018 ? GENERAL: pleasant, female in no apparent distress HEENT: Normocephalic, atraumatic, mucus membranes moist and no lesions NECK: full range of motion DERMATOLOGY: Normal, without lesions, non-icteric and non-hirsute CARDIAC: Regular rate and rhythm CHEST: Clear to auscultation Normal inspiratory effort ABDOMEN: soft, non-tender and Gravid NEURO: alert and oriented x3,exam grossly non-focal EXTREMITIES: normal ? ASSESSMENT AND PLAN: Encounter Diagnosis ? ? ICD-10-CM ? 1. Supervision of high risk in third trimester O09.93 URINE OB DIP B/O 2. 38 weeks gestation of Z3A.38 URINE OB DIP B/O ? 3. Pt has been counseled on risks/benefits and alternatives of surgery including but not limited to anesthesia, bleeding, infection, injury to pelvic structures including bowel, bladder, ureters and vessels. Pt wishes to proceed with surgery at this time. 4. Consent signed. PREOP instructions reviewed ? Omayra Roberts MD ?
[2019-05-26] VITALS (20 sets, daily range): BP systolic 100–113; BP diastolic 34–69; PULSE 62–98; RESP 13–20; TEMP 36.2–36.6; O2SAT 97–100; BMI 28.3
[2019-05-26] MEDS: Lactated Ringers 1,000 ML 999 ML IV (06:04)
[2019-05-26 06:33] LABS: Absolute Lymphocyte Count 1.87 X10^3/uL (0.83-4.51); Absolute Neutrophil Count 6.5 X10^3/uL (2.0-7.7); Basophil# 0.02 X10^3/uL; Basophil% 0.2 % (0-1); Eosinophil# 0.08 X10^3/uL; Eosinophils% 0.9 % (0-5); Hematocrit 38.5 % (37-47); Hemoglobin 13.5 g/dL (12.0-15.0); Lymphocyte # 1.87 X10^3/ul (4.0); Lymphocyte % 20.2 % (19-41); Mean Corp Hgb Conc 35.1 g/dL (32-36); Mean Corpuscular Hgb 32.6 pg (27.0-32.0); Mean Platelet Vol. 9.3 fl (6.2-12.0); Monocyte# 0.66 X10^3/uL; Monocyte% 7.1 % (0-10); NRBC Flagged by Analyzer 0 % (0-5); Neutrophil # 6.53 X10^3/uL (2.7-7.7); Neutrophil % 70.6 % (47-70); Platelet Count 136 K/mm3 (150-450); RBC Distribution Width CV 13.2 % (11.6-14.6); RBC Distribution Width SD 44.4 fl (35.1-43.9); Red Blood Count 4.14 M/mm3 (4.2-5.4); White Blood Count 9.3 K/mm3 (4.4-11.0)
[2019-05-26 06:40] LABS: Amphetamine Urine VISTA NEGATIVE (<1000 ng/mL); Barbiturate Urine VISTA NEGATIVE (< 200 ng/mL); Benzodiazepine Urine VISTA NEGATIVE (< 200 ng/mL); Cocaine Urine VISTA NEGATIVE (< 300 ng/mL); Ecstacy Urine VISTA NEGATIVE (< 500 ng/mL); Methadone Urine VISTA NEGATIVE (< 300 ng/mL); PCP Urine VISTA NEGATIVE (< 25 ng/mL); THC Urine VISTA NEGATIVE (< 50 ng/mL); Vista UDS pH Range 7
[2019-05-26] MEDS: Lactated Ringers 1,000 ML 150 ML IV (06:50)
[2019-05-26] MEDS: Sodium Citrate/Citric Acid 30 ML UDC PO (07:12)
[2019-05-26] MEDS: Cefazolin 2 GM in 0.9% Normal Saline 100 ML IV (07:27)
--- NOTE | 2019-05-26 08:26 | OP.PCM_ITS ---
Report of Operation Date of Procedure: 05/26/19 Delivery Classification: Scheduled Final VIRAL: 06/02/19 Final VIRAL Source: US <20 weeks Gestational age: 39 Weeks and 0 Days Indications for : Repeat Elective Description of Procedure: Operative note: After informed consent was obtained the patient was taken to the operating room she was given spinal anesthesia. sHe was placed in the supine position. She was then prepped and draped in normal sterile fashion. Once spinal anesthesia was found to be adequate skin incision was made with a scalpel in a Pfannenstiel fashion. It was carried down to the underlying layer of the fascia. Fascia was then incised midline with scapel and extended laterally using curved moore. 2 straight Isaiah's were placed in the superior aspect of the fascial edge and the rectus muscles were dissected off sharply . Attention was then turned to the inferior aspect where again the fascial edge was grasped with 2 straight [place] clamps tented up and the rectus muscle dissected off sharply At this time the rectus muscles were grasped in the midline using 2 Allis clamps and scalpel was used to separate the rectus muscles. Using blunt force the peritoneum was then entered. Metzenbaums were used to take down the rectus muscles inferiorly as well as the peritoneum. large peritoneal adhesion noted to fundal aspect of uterus and midline. At this time the vesicouterine peritoneum was identified. Metzenbaum scissors were used to create a bladder flap and then taken down digitally along with adhesion. Uterine incision was made in a low transverse fashion with the scalpel and then entered bluntly. Gentle opposing traction was placed to extend the uterine incision. The membranes were ruptured amniotic fluid clear. Infant's head was then brought to the uterine incision was delivered atraumatically followed by the rest 's body. At this time delayed cord clamping was performed mouth nose were suctioned. was then handed to the waiting nursery team. The placenta was then removed with gentle traction. The uterus was removed from the intra-abdominal cavity is wrapped in a moist lap. He was cleared of all clots and debris using a moist lap. Ring clamps were placed on the uterine angles. #1 Vicryl suture was used in a running locked fashion for the first layer. Followed by second imbricating layer with #1 Vicryl. At this time then the uterus was placed back into abdominal cavity uterine incision was evaluated and noted to be of good hemostasis. small oozing noted on anterior aspect of uterus where adhesions taken down. darnell placed of uterus and incision. uterine incision was again evaluated good hemostasis was appreciated. The peritoneum was grasped with [place] ys. Peritoneum and muscle were reapproximated using #2 Vicryl suture in a running fashion. The fascia was then reapproximated using #1 Vicryl in a running fashion. Subcutaneous layer was evaluated and Bovie was used for any small oozing that was noted per #2-0 plain gut suture was then used to reapproximate the subcutaneous layer 4-0 monocryl on a Antelmo needle was used to reapproximate the skin in a subcutaneous fashion. Dry sterile dressing was applied. Instrument lap needle count were correct ?2. Anticipated normal postoperative course for this patient. Amniotic Membrane Rupture Type: Artificial Amniotic Fluid Description: Clear Placenta Disposition: [facility] Drain: Ba to straight drain Fluids Replaced: 1500 Cord Entanglement: Around neck x 1, loose Nuchal Cord Compression: Without compression Cord Vessel Description: 3 Vessels Esitmated Blood Loss (ml): 650 Infant Gender: Female (1 minute): 8 (5 minute): 9 Delayed cord clamping: Yes Pre-op Antibiotic Given: Ancef 2 grams IV x1 Pt instructed on risks of surgery: Bleeding, Anesthesia Risks, Infection, Injury to surrounding structure(s) including bowel and bladder Complications: None - Admit VTE Documentation VTE Present on Admission: Yes VTE Mechan Device Prophylaxis: SCD's VTE Pharm Prophylaxis ordered?: No
[2019-05-26] MEDS: Oxytocin 30 units/NS 500 ml 30 UNITS/500 ML IV.SOLN 167 UNITS IV (08:45)
--- NOTE | 2019-05-26 11:03 | NURSING ---
agree with charting completed by CAROLE Lazo
[2019-05-26] MEDS: Acetaminophen 500 MG Tablet 1000 MG PO ×2 (11:26→22:49)
[2019-05-26] MEDS: Lactated Ringers 1,000 ML 100 ML IV (11:45)
--- NOTE | 2019-05-26 12:31 | NURSING ---
Indwelling urinary catheter present. WNL.
[2019-05-26] MEDS: 0.9% Saline Lock 10 ML Syringe IV ×2 (15:34→20:54)
[2019-05-26] MEDS: Ketorolac 30 MG/ML Syringe IV ×2 (15:34→20:53)
--- NOTE | 2019-05-26 15:38 | NURSING ---
Patient stood up and pad was changed. Patient ambulated to chair. Gait steady and tolerated well. Patient sitting up in chair with call light in reach with continuous pulse ox on. Denies further needs at this time.
[2019-05-26] MEDS: Senna/Docusate Sodium 1 Tablet PO (20:53)
[2019-05-27] VITALS (8 sets, daily range): BP systolic 104–117; BP diastolic 42–63; PULSE 78–97; RESP 16–26; TEMP 36.2–37; O2SAT 96–99
[2019-05-27] MEDS: 0.9% Saline Lock 10 ML Syringe IV ×4 (03:26→22:16)
[2019-05-27] MEDS: Ketorolac 30 MG/ML Syringe IV ×4 (03:26→22:15)
[2019-05-27 05:45] LABS: Hematocrit 31.7 % (37-47); Hemoglobin 10.9 g/dL (12.0-15.0); Mean Corp Hgb Conc 34.4 g/dL (32-36); Mean Corpuscular Hgb 32.9 pg (27.0-32.0); Mean Corpuscular Volume 95.8 fL (81-99); Mean Platelet Vol. 8.8 fl (6.2-12.0); Platelet Count 115 K/mm3 (150-450); RBC Distribution Width CV 13.7 % (11.6-14.6); RBC Distribution Width SD 47.7 fl (35.1-43.9); Red Blood Count 3.31 M/mm3 (4.2-5.4); White Blood Count 10.6 K/mm3 (4.4-11.0)
[2019-05-27] MEDS: oxyCODONE 5 MG Tablet PO ×2 (08:19→19:05)
--- NOTE | 2019-05-27 10:23 | NURSING ---
See pain assessment attached to MAR
--- NOTE | 2019-05-27 11:02 | PCM.PN.OB ---
Subjective: She is seen at bedside doing well. Patient reports good pain control. Passing flatus. Voiding without difficulty. Breast-feeding is going well. Mild lochia. - Physical Exam General: Alert, Oriented x3 Abdomen: Soft, Non-Distended, - - appropriately tender. Fundus firm. Dressing dry and intact Extremities: No Calf Tenderness Vital Signs Temp Pulse Resp BP Pulse Ox 97.7 F L 88 20 H 108/45 L 97 05/27/19 08:03 05/27/19 08:03 05/27/19 08:03 05/27/19 08:03 05/27/19 08:03 Oxygen Delivery Method Room Air Weight: 79.7 kg Body Mass Index (BMI) 28.3 Intake and Output for Last 24 Hours 05/25/19 05/26/19 05/27/19 23:59 23:59 23:59 Intake Total 4441 / 4441 Output Total 2525 / 2525 900 / 900 Balance 1916 / 1916 -900 / -900 Laboratory Tests Past 24 Hrs 05/27/19 05:35 WBC 10.6 RBC 3.31 L Hgb 10.9 L Hct 31.7 L MCV 95.8 MCH 32.9 H MCHC 34.4 RDW Std Deviation 47.7 H RDW Coeff of [place] 13.7 Plt Count 115 L MPV 8.8 Medical Necessity - Tobacco Use Smoking Status: Former smoker Assessment/Plan All Active Problems (Acute) Genital herpes affecting in third trimester (Acute) Genital herpes affecting , antepartum (Acute) PROM (premature rupture of membranes) (Acute) POD#1, doing well 1) routine care 2) pain mgmt 3) ambulation
--- NOTE | 2019-05-27 15:30 | CASEMGMT ---
Social Work Assessment Labor and Delivery Unit Date of Referral: 05/26/19 Time of Referral: [id number] Date of Intervention: 05/27/19 Time of Intervention: 1530 Reason for Referral: POSITIVE THC DURING History obtained from: CHART, NURSING, MOB AND FOB. Household composition: MOB LIVES HOME WITH FOB AND 17 MONTH OLD SON, KATHARINE. Educational Status: HIGH SCHOOL GRADUATE Financial Status: MOB REPORTS NOT CURRENTLY WORKING. FOB, LEILANI ZARAGOZA HAS 2 JOBS. Supplies: MOB AND FOB REPORT HAVE ALL NEEDS MET FOR BABY. Childcare/Caregiver(s): MOB REPORTS GOOD SUPPORT FROM FAMILY WHO ARE ABLE TO ASSIST NEEDED. Transportation: MOB DENIES ANY TRANSPORTATION ISSUES Programs/Agencies Involved: MOB REPORTS ACTIVE WITH [employer] AND PREVIOUSLY WIC. MOB REPORTS WILL BE FOLLOWING UP WITH WIC. Children Services/Legal Issues: NONE REPORTED. Behavioral Health Issues: Mental Health History: MOB REPORTS HX OF ANXIETY. Substance Use History: MOB REPORTS OCCASIONAL ALCOHOL USE AND MARIJUANA USE. MOB STATES NO CURRENT USE. Drug Screens: PER NURSING, POSITIVE THC BACK IN OCTOBER. NEGATIVE DRUG SCREEN ON ADMISSION. Family/Social Stressors: NONE REPORTED. Support Systems: MOB STATES GOOD SUPPORT FROM FOB, FAMILY, FRIENDS, AND EXTENDED FAMILY. Depression/Shaken Baby/Safe Sleeping REVIEWED ALL 3 WITH MOB AND FOB. MOB AND FOB VERBALIZE UNDERSTANDING OF PPD, SHAKEN BABY AND SAFE SLEEPING. ASSESSMENT: MET WITH MOB AND FOB IN ROOM. INTRODUCED ROLE AND REASON FOR REFERRAL. MOB LAYING IN BED. FOB ON COUCH WITH BABY GIRL, FLORES ON CHEST. MOB GAVE PERMISSION FOR THIS WORKER TO SPEAK OPENLY WITH FOB PRESENT. MOB DENIES ANY ISSUES OR CONCERNS AND STATES HAS ALL NEEDS MET FOR BABY. DENIES ANY NEEDS FOR REFERRALS. MOB ADMITS TO HX OF OCCASIONAL ALCOHOL USE AND MARIJUANA USE. MOB DENIES ANY CURRENT USE. MOB REPORTS HX OF ANXIETY. DISCUSSED SIGNS/SYMPTOMS OF DEPRESSION AND RESOURCES PROVIDED. UPDATED NURSING ON THIS WORKER'S ASSESSMENT. NO FURTHER NEEDS. Safe Plan of Care for infant related to substance use: MOB DENIES ANY CURRENT USE. PLAN: HOME BEFORE. RESOURCES PROVIDED. No other services requested or indicated. -Eliza Hager, SCIENCE SPECIALIST, ENVIRONMENTAL SCIENCE TECHNICIAN
[2019-05-27] MEDS: Senna/Docusate Sodium 1 Tablet PO (17:42)
--- NOTE | 2019-05-27 18:08 | NURSING ---
Patient educated on proper use of binder while up and walking but to leave binder open of off while sitting/resting. Patient also educated on risks vs. benefits of introducing a pacifier at this time. Patient has her own pacifier from home and plans on using it
[2019-05-28 02:29] VITALS: BP 112/53; PULSE 87; RESP 18; TEMP 36.2; O2SAT 97
[2019-05-28] MEDS: Ketorolac 30 MG/ML Syringe IV ×2 (02:59→09:56)
[2019-05-28] MEDS: 0.9% Saline Lock 10 ML Syringe IV ×2 (02:59→09:55)
[2019-05-28] MEDS: oxyCODONE 5 MG Tablet PO (07:43)
[2019-05-28 09:00] VITALS: BP 117/66; PULSE 111; RESP 18; TEMP 36.4
[2019-05-28 09:30] VITALS: PULSE 111
[2019-05-28] MEDS: Senna/Docusate Sodium 1 Tablet PO (09:52)
[2019-05-28] MEDS: Acetaminophen 500 MG Tablet 1000 MG PO (09:53)
--- NOTE | 2019-05-28 10:29 | NURSING ---
reviewed and agree with documentation of am assessment by chichi Espino. mild tachycardia noted. Pt voices no c/o c/p, SOB, dizziness. Will continue to monitor.
--- NOTE | 2019-05-28 10:44 | PCM.PN.OB ---
Subjective: Patient seen at bedside doing well. Patient reports good pain control. Lochia mild. Passing flatus and had a bowel movement this morning. Breast-feeding is going well. Patient is requesting DC home today - Physical Exam General: Alert, Oriented x3 Abdomen: Soft, Non-Distended, - - Dressing dry and intact. Fundus is firm low umbilicus Extremities: No Calf Tenderness Vital Signs Temp Pulse Resp BP Pulse Ox 97.5 F L 111 H 18 117/66 97 05/28/19 09:00 05/28/19 09:30 05/28/19 09:00 05/28/19 09:00 05/28/19 02:29 Oxygen Delivery Method Room Air Weight: 79.7 kg Body Mass Index (BMI) 28.3 Intake and Output for Last 24 Hours 05/26/19 05/27/19 05/28/19 23:59 23:59 23:59 Intake Total 4441 / 4441 Output Total 2525 / 2525 900 / 900 Balance 1916 / 191 -900 / -900 Medical Necessity - Tobacco Use Smoking Status: Former smoker Assessment/Plan All Active Problems (Acute) Genital herpes affecting in third trimester (Acute) Genital herpes affecting , antepartum (Acute) PROM (premature rupture of membranes) (Acute) Postoperative day #2, doing well Routine care Pain management Ambulation DC home today
--- NOTE | 2019-05-28 10:48 | DCINST_ITS ---
Discharge Diet: No Restrictions Discharge Activity: Return to Normal Activity, May Not Drive - for 2 weeks, May not drive while taking narcotic pain medications., May Shower, May Take a Tub Bath - in 7 days. May resume sexual activity in: 4-6 weeks Lifting Restrictions: 20 pounds Additional Activity Instructions:: Nothing in the vagina for 4-6 weeks. You may return to work/school in 6 weeks. Call your doctor if your incision/area has: Continuous Slow Oozing, Sudden Increased Bleeding, Increased Pain/ Swelling, Increased Redness, Foul Smelling Discharge Call your doctor if you observe: Fever of 101 or Higher, Using more than one pad per hour - for 2 hours Suture Line Care: Avoid Pulling/Pushing, Avoid Pinching/Bending Cleanse incision/area with: Keep Dressing Clean & Dry Additional Instructions: If you experience any of the following, contact your healthcare provider. * Bleeding that soaks a pad every hour for 2 hours * Fever 100.4 or higher * Unrelieved incision or abdominal pain * Swelling, redness, discharge or bleeding from your incision or episiotomy site * Your incision begins to separate * Problems urinating (including inability to urinate or burning while urinating). * Visual changes * Severe headache * Flu-like symptoms * Pain or redness in one of both of your breasts * Pain, warmth, tenderness or swelling in your legs, especially the calf area * Frequent nausea and vomiting * Symptoms of depression or anxiety If you experience any of the following, call 911 or go to the nearest Emergency Room. * Chest pain * Problems breathing * Seizure activity * Partial or complete paralysis of a body part, slurred speech, weakness or drooping of the face, or a sudden inability to walk or hold your balance Allergies/Adverse Reactions: Allergies No Known Allergies Allergy (Verified 05/26/19 05:58) Medications to take at Discharge Albuterol Inhaler [Ventolin Hfa] 1 inhaler INHALATION PRN PRN 12/26/17 Vit Calc,Iron,Folic [ Vitamins] 1 tab PO DAILY 12/26/17 Ibuprofen [Motrin] 600 mg PO Q6H PRN PRN #30 tab 05/28/19 Oxycodone HCl/Acetaminophen [Percocet 5/325] 1 tablet PO Q4H PRN PRN 7 Days #20 tablet 08/18/19 Senna/Docusate Sodium [Senokot-S] 1 - 2 tab PO DAILY PRN #20 tab 05/28/19 SimETHICONE [Mylicon] 80 mg PO PCHS PRN #30 tab 05/28/19 The following prescriptions were given: Ibuprofen [Motrin] 600 mg PO Q6H PRN PRN #30 tab PRN Reason: Mild Pain (-12/18) Transmission Status: Pending to [facility] SimETHICONE [Mylicon] 80 mg PO PCHS PRN #30 tab PRN Reason: Indigestion/stomach pain Transmission Status: Pending to [facility] Oxycodone HCl/Acetaminophen [Percocet 5/325] 1 tablet PO Q4H PRN PRN 7 Days #20 tablet PRN Reason: pain Transmission Status: Sent to [facility] Senna/Docusate Sodium [Senokot-S] 1 - 2 tab PO DAILY PRN #20 tab PRN Reason: Constipation Transmission Status: Pending to [facility] Follow-Up: Call to make an appointment with your doctor for an incision check in 1-2 weeks. You will also need a 6 week post- follow up appointment. Test results from this visit will be discussed in further detail at your follow- up appointment, if applicable. Please Follow Up With: Omayra Roberts MD - Call to make an appointment for an incision check in 1-2 [phone] When: You will need a post- check in 6 weeks. Primary Care Physician: Alex Means MD [Primary Care Provider] -
--- NOTE | 2019-05-28 10:49 | DS.PCM_ITS ---
Discharge Summary Date of Admission: 05/26/19 Date of Discharge: 05/28/19 Summary: She was admitted to [facility] on 05/26/2019 for scheduled elective repeat section. Patient underwent a low transverse repeat section without complication. She had an uncomplicated postoperative course vital signs were stable blood count was stable. Patient was discharged home on postoperative day #2. - Physical Exam Vital Signs Temp Pulse Resp BP Pulse Ox 97.5 F L 111 H 18 117/66 97 05/28/19 09:00 05/28/19 09:30 05/28/19 09:00 05/28/19 09:00 05/28/19 02:29 Oxygen Delivery Method Room Air Weight: 79.7 kg Body Mass Index (BMI) 28.3 Intake and Output for Last 24 Hours 05/26/19 05/27/19 05/28/19 23:59 23:59 23:59 Intake Total 4441 / 4441 Output Total 2525 / 2525 900 / 900 Balance 1916 / 1915 -900 / -900
[2019-05-28 13:26] VITALS: BP 112/65; PULSE 91; RESP 16; TEMP 36.9; O2SAT 100
== END 2019-05-28 14:05 | disposition home or self-care (01) | DRG 540 ==
PROVIDERS: Admitting Provider Obstetrics & Gynecology; Family Provider Family Medicine; PCP Family Medicine; Referring Provider Obstetrics & Gynecology; Visit Provider Obstetrics & Gynecology
PROC: 10D00Z1 Extraction of Products of Conception, Low, Open Approach (ICD-10-PCS; CPT 59514; principal; 2019-05-26 07:15)
DX: O34.219 Maternal care for unspecified type scar from previous cesarean delivery (principal); O98.32 Other infections with a predominantly sexual mode of transmission complicating childbirth; A60.00 Herpesviral infection of urogenital system, unspecified; O69.81X0 Labor and delivery complicated by cord around neck, without compression, not applicable or unspecified; J45.990 Exercise induced bronchospasm; Z87.891 Personal history of nicotine dependence; Z79.899 Other long term (current) drug therapy; Z3A.39 39 weeks gestation of pregnancy; Z37.0 Single live birth
CPT/HCPCS: 80307; 85025; 85027; 86850; 86900; 86901; 99218; J7120; A4216; G0378; J2405

== ENCOUNTER 2021-11-14 09:00 | Inpatient (IN) | payer MEDICAID, SELFPAY ==
[2019-05-26 05:57] VITALS: BMI 28.3
[2021-11-14] VITALS (15 sets, daily range): BP systolic 90–118; BP diastolic 28–68; PULSE 73–100; RESP 16–18; TEMP 36.2–36.6; O2SAT 96–100; BMI 31.8
[2021-11-14] MEDS: Lactated Ringers 1,000 ML 999 ML IV (09:40)
[2021-11-14 09:51] LABS: Absolute Lymphocyte Count 1.28 X10^3/uL (0.83-4.51); Absolute Neutrophil Count 7.5 X10^3/uL (2.0-7.7); Basophil# 0.02 X10^3/uL; Basophil% 0.2 % (0-1); Eosinophil# 0.08 X10^3/uL; Eosinophils% 0.9 % (0-5); Hematocrit 38.2 % (37-47); Hemoglobin 13.5 g/dL (12.0-15.0); Lymphocyte # 1.28 X10^3/ul (0.83-4.51); Lymphocyte % 13.7 % (19-41); Mean Corp Hgb Conc 35.3 g/dL (32-36); Mean Corpuscular Hgb 32.8 pg (27.0-32.0); Mean Corpuscular Volume 92.9 fL (81-99); Mean Platelet Vol. 9.1 fl (6.2-12.0); Monocyte# 0.36 X10^3/uL; Monocyte% 3.9 % (0-10); NRBC Flagged by Analyzer 0 % (0-5); Neutrophil # 7.48 X10^3/uL (2.7-7.7); Platelet Count 141 K/mm3 (150-450); RBC Distribution Width CV 13.7 % (11.6-14.6); RBC Distribution Width SD 46.6 fl (35.1-43.9); Red Blood Count 4.11 M/mm3 (4.2-5.4); White Blood Count 9.3 K/mm3 (4.4-11.0)
[2021-11-14] MEDS: Acetaminophen 500 MG Tablet 1000 MG PO ×3 (09:56→22:23)
[2021-11-14] MEDS: Lactated Ringers 1,000 ML 150 ML IV (10:43)
[2021-11-14] MEDS: Sodium Citrate/Citric Acid 30 ML UDC PO (11:40)
--- NOTE | 2021-11-14 11:43 | PCM.PN.BLA ---
Progress Note I have re-examined the patient. There are no clinical changes since date of exam. Please see paper copy history and physical as hospital system was down and I was not able to upload to [facility].
[2021-11-14] MEDS: Cefazolin 2 GM in 0.9% Normal Saline 100 ML IV (11:45)
--- NOTE | 2021-11-14 12:35 | EX.PCM.OBRPT ---
Assessment & Plan (1) 39 weeks gestation of : (2) Delivery by section: (3) Pelvic adhesion, delivered, current hospitalization: Maternal Data Information Final VIRAL: 11/21/21 Final VIRAL Source: [place] <20 weeks Gestational age: 39 Details Operative Information Date of Procedure: 11/14/21 Pre-Operative Diagnosis: 39weeks gestation, previous cs, desires sterilization Post-Operative Diagnosis: same, live female , dense pelvic adhesions Indications for : Repeat Elective and Desires elective sterilization Classification: Scheduled Procedure Type: low transverse regional marketing manager #1: Mirian Llamas Type of Anesthesia: Spinal Antibiotic Given: Ancef 2 grams IV x1 Estimated Blood Loss: 700 Fluids Replaced: 1000 Procedure Start Time: 12:04 Time of Delivery: 12:11 Findings Description of Procedure: After informed consent was obtained the patient was taken the operating room she was given spinal anesthesia. She was then placed in the supine position. She was prepped and draped in the normal sterile fashion. Anesthesia was found to be adequate. At this time a Pfannenstiel skin incision was made with a knife was carried down to the underlying layer of the fascia. The fascial incision was then extended laterally using curved Munoz scissor. attention was then turned to the superior aspect of the fascial edge was grasped with 2 straight Isaiah clamps tented up and the rectus muscle dissected off sharply using curved Munoz scissor. Attention was then turned to the inferior aspect where again Isaiah clamps were placed in the rectus muscles were tented up and the fascia was dissected off sharply using the curved Munoz scissor. Rectus muscles were grasped in the midline with Allis clamps. Gentle dissection with the scalpel to it appeared to be the peritoneum. At this point peritoneum was grasped with 2 Kellys and entered with curved Munoz scissor. Upon gentle blunt dissection the uterus was entered and amniotic fluid was clear. At this point there still was no clear separation between peritoneum rectus muscles and the anterior aspect of the uterus. At this time bandage scissors were used to cut the uterus peritoneum and rectus muscles to allow space for delivery of the 's head. The 's head was not well engaged. At this time the Kiwi vacuum was used one attempt to bring the head to the hysterotomy for delivery pop-off was appreciated. At this time then the infant's head was delivered atraumatically with gentle fundal pressure. The rest 's body was delivered cord was clamped and cut and the infant was handed to the waiting nursery team. The Placenta was removed from the uterus. The uterus remained in the intra-abdominal cavity as there were dense adhesions on all aspect of the uterus. UNABLE TO PERFORM SALPINGECTOMY due to dense adhesions. We were unable to get into the gutters. The uterus was cleared of all clots and debris using a lap. At this time the uterine incision was reapproximated using #1 Vicryl in a running locked fashion. Followed by multiple [id number] sutures for hemostasis. Hemostasis was appreciated. Vish was placed over the uterine incision. Uterine incision was reevaluated and noted to be of excellent hemostasis. At this time the dense adhesions of the peritoneum and muscle were then reapproximated using a running stitch #2-0 Vicryl. Excellent mistakes appreciated. Vish placed over the rectus muscle. Fascia was then reapproximated using #1 Vicryl in a running fashion. bovie used for any ooozing in subcu layer- followed by arist. Subcu layer was reapproximated with #2 0 plain gut suture in an interrupted fashion. Subcu layer was closed using 4-0 Monocryl in a subcu fashion. Dry sterile dressing was applied. Instrument lap needle count correct ?2. Anticipated normal postoperative course. Presentation: Positive for Vertex Amniotic Membrane Rupture Type: Artificial Amniotic Fluid Description: Clear Placental Delivery Description: Manual Removal Placenta Disposition: [facility] Cord Vessel Description: 3 Vessels Cord Entanglement: None A Gender: Female (1 minute): 6 (5 minute): 9 Delayed Cord Clamping: No Complications Risks of Surgery Discussed w/Patient: Bleeding and Anesthesia Risks Complications: Dense pelvic adhesions- unable to perform salpingectomy. will plan for IUD at PP visit. Admit VTE Documentation VTE Present on Admission: Yes VTE Mechan Device Prophylaxis: SCD's VTE Pharm Prophylaxis Ordered: No Reason Prophylaxis Not Ordered: Procedure Not Indicated
[2021-11-14] MEDS: Oxytocin 30 units/NS 500 ml 30 UNITS/500 ML IV.SOLN 167 UNITS IV (13:05)
[2021-11-14] MEDS: Ketorolac 30 MG/ML Syringe IV ×2 (13:39→19:01)
[2021-11-14] MEDS: Nalbuphine 10 MG/ML Ampul 5 MG IV ×2 (13:40→16:56)
[2021-11-14] MEDS: Lactated Ringers 1,000 ML 100 ML IV (16:05)
[2021-11-15] VITALS (9 sets, daily range): BP systolic 96–118; BP diastolic 40–64; PULSE 66–91; RESP 14–16; TEMP 36.1–36.7; O2SAT 96–100
[2021-11-15] MEDS: Ketorolac 30 MG/ML Syringe IV ×2 (01:24→06:52)
[2021-11-15] MEDS: 0.9% Saline Lock 10 ML Syringe IV ×2 (01:25→06:52)
[2021-11-15] MEDS: Acetaminophen 500 MG Tablet 1000 MG PO ×4 (03:51→22:21)
[2021-11-15 05:52] LABS: Hemoglobin 11.5 g/dL (12.0-15.0); Mean Corp Hgb Conc 33.8 g/dL (32-36); Mean Corpuscular Hgb 32.6 pg (27.0-32.0); Mean Corpuscular Volume 96.3 fL (81-99); Mean Platelet Vol. 8.8 fl (6.2-12.0); Platelet Count 116 K/mm3 (150-450); RBC Distribution Width CV 14.1 % (11.6-14.6); RBC Distribution Width SD 49.4 fl (35.1-43.9); Red Blood Count 3.53 M/mm3 (4.2-5.4); White Blood Count 9.8 K/mm3 (4.4-11.0)
--- NOTE | 2021-11-15 09:47 | PN.OBGYN_ITS ---
Subjective Subjective pain well controlled, average lochia. No N/V. Nasim. regular diet Objective Data Objective Data Vital Signs: Vital Signs Temp Pulse Resp BP Pulse Ox 97.6 F L 78 14 100/54 L 100 11/15/21 09:05 11/15/21 09:05 11/15/21 09:05 11/15/21 09:11 11/15/21 03:57 Oxygen Delivery Method Room Air Weight: 86.818 kg Body Mass Index (BMI) 31.8 Intake & Output: Intake and Output for Last 24 Hours 11/13/21 11/14/21 11/15/21 23:59 23:59 23:59 Intake Total 2406.67 / 2406.67 Output Total 1150 / 1150 1000 / 1000 Balance 1256.67 / 1256.67 -1000 / -1000 Lab / Micro Data Result Diagrams: 11/15/21 05:45 Labs: Laboratory Results - last 24 hr 11/14/21 09:40: WBC 9.3, RBC 4.11 L, Hgb 13.5, Hct 38.2, MCV 92.9, MCH 32.8 H, MCHC 35.3, RDW Std Deviation 46.6 H, RDW Coeff of [place] 13.7, Plt Count 141 L, MPV 9.1, Immature Gran % (Auto) 1.300 H, Neut % (Auto) 80.0 H, Lymph % (Auto) 13.7 L , Garrett % (Auto) 3.9, Eos % (Auto) 0.9, Baso % (Auto) 0.2, Absolute Neuts (auto) 7.5, Absolute Lymphs (auto) 1.28, Nucleated RBC % 0 11/14/21 09:40: Blood Type A POSITIVE, Antibody Screen NEGATIVE 11/15/21 05:45: WBC 9.8, RBC 3.53 L, Hgb 11.5 L, Hct 34.0 L, MCV 96.3, MCH 32.6 H, MCHC 33.8, RDW Std Deviation 49.4 H, RDW Coeff of [place] 14.1, Plt Count 116 L, MPV 8.8 Physical Exam Const alert and no apparent distress Narrative: Fundus firm, below umbilicus. Assessment & Plan (1) delivery delivered: PLAN: POD#1 DOING WELL routine care and doing well
[2021-11-15] MEDS: Senna/Docusate Sodium 1 Tablet PO (09:59)
[2021-11-15] MEDS: Ibuprofen 600 MG Tablet PO ×2 (12:13→18:33)
[2021-11-15] MEDS: oxyCODONE 5 MG Tablet PO ×3 (12:13→21:16)
[2021-11-16] MEDS: Ibuprofen 600 MG Tablet PO ×2 (00:55→07:58)
[2021-11-16] MEDS: oxyCODONE 5 MG Tablet PO ×3 (02:31→12:55)
[2021-11-16 03:10] VITALS: BP 116/44; PULSE 76; RESP 16; TEMP 37.1; O2SAT 97
--- NOTE | 2021-11-16 03:44 | NURSING ---
This RN noted pt. chart doesn't show when she got up out of bed after surgery. Upon start of this shift, pt. was up ad brennen with minimal assist.
[2021-11-16] MEDS: Acetaminophen 500 MG Tablet 1000 MG PO ×2 (04:27→12:34)
--- NOTE | 2021-11-16 06:00 | NURSING ---
Small raised area noted above pt's sacrum. States it hurts to sit on or when changing position. Ice has helped area. No redness noted. Educated pt. on swelling after delivery and pain from infant in utero. Pt. to discuss this pain with physician in morning.
--- NOTE | 2021-11-16 08:17 | PCM.PROGNOTE ---
Subjective Subjective Patient seen at bedside, doing well. Patient reports good pain control. Denies any nausea or vomiting. Voiding without difficulty. Is passing flatus. No bowel movement at this time. Breast-feeding. Patient ready for DC home today. c/o some tail bone pain and swelling. Objective Data Objective Data Vital Signs: Vital Signs Temp Pulse Resp BP Pulse Ox 98.7 F 76 16 116/44 L 97 11/16/21 03:10 11/16/21 03:10 11/16/21 03:10 11/16/21 03:10 11/16/21 03:10 Oxygen Delivery Method Room Air Weight: 86.818 kg Body Mass Index (BMI) 31.8 Intake & Output: Intake and Output for Last 24 Hours 11/14/21 11/15/21 11/16/21 23:59 23:59 23:59 Intake Total 2406.67 / 2406.67 0 / 0 Output Total 1150 / 1150 1000 / 1000 Balance 1256.67 / 1256.67 -1000 / -1000 Lab / Micro Data Result Diagrams: 11/15/21 05:45 Physical Exam Narrative Dressing dry and intact. TAIL BONE- NO SWELLING OR ERYTHEMA, TENDER TO TOUCH. NO WARMTH APPRECIATED. Const alert and oriented x3 General Appearance: cooperative HEENT normocephalic Neck General: normal visual inspection GI soft to palpation and non-distended GI Narrative: Fundus firm Extremity normal to inspection and no calf tenderness Skin no rashes or lesions noted Neuro oriented x3 and CN's II-XII intact bilaterally Psych mental status grossly normal Assessment & Plan Assessment/Plan (1) delivery delivered: (2) Pelvic adhesion, delivered, current hospitalization: PLAN: POD#2 , Doing well Routine care pain mgmt monitor VS ambulation hg/hct stable dc home- requesting oxycodone for dc home
--- NOTE | 2021-11-16 08:20 | PCM.DC ---
Discharge Instructions Diet Discharge Diet: No restrictions Activity Discharge Activity: May Not Drive (while taking narcotics and until pain controlled. ) and May Shower May resume sexual activity in: 6-8 weeks Lifting Restrictions: 25 Dressing / Incision Call your doctor if your incision/area has: Continuous Slow Oozing, Sudden Increased Bleeding, Increased Pain/ Swelling, Increased Redness, Foul Smelling Discharge and Swelling at the incision site Call your doctor if you observe: Fever of 101 or Higher, Inability to urinate, Using more than 1 pad per hour and Uncontrolled pain Additional Dressing/Incision Instructions:: remove dressing at 7 days post op- if it becomes saturated prior to that time you may remove it. Let soap and water run over incision sites and dab dry. keep incision clean and dry. Follow Up Care Please Follow Up With: Omayra Roberts MD When: 1-2 weeks post of incision check and again at 6 weeks post . [phone] Test Results: Test results from this visit will be discussed in further detail at your follow-up appointment, if applicable. Discharge Plan Admission Admit Date/Time: 11/14/21 09:00 Attending Provider: Omayra Roberts Primary Care Provider: Alex Means Discharge Orders/Prescriptions Prescriptions: New acetaminophen 500 mg Tablet 1,000 mg PO Q6H Qty: 0 RF: 0 ibuprofen 600 mg Tablet 600 mg PO Q6H Qty: 0 RF: 0 oxycodone 5 mg Tablet 5 - 10 mg PO Q6H PRN (Reason: pain) 5 Days Qty: 12 RF: 0 simethicone [Mi-Acid Gas Relief(simethicon)] 80 mg Tablet,Chewable 80 mg PO PCHS PRN (Reason: Indigestion/stomach pain) Qty: 0 RF: 0 Continued albuterol sulfate [Ventolin HFA] 1 INHALER inhaler 1 inhaler inhalation PRN PRN (Reason: Asthma) RF: 0 Vitamin 1 EACH tablet 1 tab PO DAILY RF: 0 acyclovir 400 mg tablet RF: 0 Referrals / Follow Up: Alex Means MD [Primary Care Provider] - Disposition Disposition (needs filled in before D/C Order can be placed): Home, Self Care
--- NOTE | 2021-11-16 08:26 | PCM.DC.BLA ---
Discharge Summary Date of Admission: 11/14/21 Date of Discharge: 11/16/21 Summary: Patient underwent a scheduled repeat elective section at 39 weeks gestation. She had a low transverse section without complication. Unable to perform salpingectomy at the time of due to significant pelvic adhesions that prevented visualization of bilateral tubes. Patient had a uncomplicated postoperative course was discharged home on postoperative day 2 in stable condition. She delivered a live female weighing 9 pounds 6 ounces. Meaningful Use Info Meaningful Use Diagnoses (Choose all that apply): None applicable Discharge Plan Admission Admit Date/Time: 11/14/21 09:00 Attending Provider: Omayra Roberts Primary Care Provider: Alex Means Discharge Orders/Prescriptions Prescriptions: New acetaminophen 500 mg Tablet 1,000 mg PO Q6H Qty: 0 RF: 0 ibuprofen 600 mg Tablet 600 mg PO Q6H Qty: 0 RF: 0 oxycodone 5 mg Tablet 5 - 10 mg PO Q6H PRN (Reason: pain) 5 Days Qty: 12 RF: 0 simethicone [Mi-Acid Gas Relief(simethicon)] 80 mg Tablet,Chewable 80 mg PO PCHS PRN (Reason: Indigestion/stomach pain) Qty: 0 RF: 0 Continued albuterol sulfate [Ventolin HFA] 1 INHALER inhaler 1 inhaler inhalation PRN PRN (Reason: Asthma) RF: 0 Vitamin 1 EACH tablet 1 tab PO DAILY RF: 0 acyclovir 400 mg tablet RF: 0 Referrals / Follow Up: Alex Means MD [Primary Care Provider] - Disposition Disposition (needs filled in before D/C Order can be placed): Home, Self Care
[2021-11-16] MEDS: Senna/Docusate Sodium 1 Tablet PO (08:51)
[2021-11-16 09:50] VITALS: BP 124/49; PULSE 76; RESP 18; TEMP 36.1; O2SAT 98
--- NOTE | 2021-11-20 07:12 | PCM.HP.OB ---
HPI - General General Date of Admission: 11/14/21 HPI Narrative МАРИЯ FONSECA, is a 26 F who presents @ 39 weeks presents for scheduled CS and sterilization Maternal Data Information Final VIRAL: 11/21/21 Gestational age: 39 PFSH PFSH Medical History (Updated 11/16/21 @ 08:[address] Omayra Roberts MD) Asthma Home Medications Vitamin 1 tab PO DAILY 12/26/17 [History Last Taken 05/25/19] albuterol sulfate [Ventolin HFA] 1 inhaler INHALATION PRN PRN 12/26/17 [History Last Taken Unknown] acyclovir 11/14/21 [History Last Taken Unknown] acetaminophen 1,000 mg PO Q6H #0 tab 11/16/21 [Rx Last Taken Unknown] ibuprofen 600 mg PO Q6H #0 tab 11/16/21 [Rx Last Taken Unknown] oxycodone 5 - 10 mg PO Q6H PRN 5 Days #12 tab 11/16/21 [Rx Last Taken Unknown] simethicone [Mi-Acid Gas Relief(simethicon)] 80 mg PO PCHS PRN #0 tab 11/16/21 [Rx Last Taken Unknown] Allergy/AdvReac Type Severity Reaction Status Date / Time No Known Allergies Allergy Verified 11/14/21 09:31 Surgical History (Updated 11/20/21 @ 07:[address] Omayra Roberts MD) History of surgery Previous section Social History Smoking Status: Never smoker History Elective abortions Hx Para 2 Spontaneous abortions Hx # Term Pregnancies Ectopic pregnancies Hx # Pregnancies Multiple births # of living children Vital Signs Vital Signs Vital Signs: Weight Weight: 86.818 kg Body Mass Index (BMI) 31.8 Physical Exam Narrative Abd: gravid, non tender. Const alert and oriented x3 General Appearance: cooperative Labs Labs Labs: Blood Type A POSITIVE Antibody Screen NEGATIVE Hct 34.0 % (37-47) L Hgb 11.5 g/dL (12.0-15.0) L Rhogam given: No Assessment & Plan (1) 39 weeks gestation of : (2) : QUALIFIERS: Weeks of gestation: 40 weeks Qualified Code(s): Z3A.40 - 40 weeks gestation of (3) Genital herpes affecting in third trimester: (4) Previous delivery affecting : PLAN: 26yo @ 39 weeks- previous cs, requesting sterilization 1) pt was counseled on risks of surgery including but not limited to bleeding, infection, injury to pelvic structures including bladder, bowel, vessels, need for transfusion. pt counseled on risk of regred with sterilization- understands it is permanent. 2) consent signed 3) Pre and post op instructions reviewed- ERAS protocol reviewed 4) see H&P from office notes
== END 2021-11-16 13:45 | disposition home or self-care (01) | DRG 540 ==
PROVIDERS: Admitting Provider Obstetrics & Gynecology; PCP Family Medicine; Visit Provider Obstetrics & Gynecology
PROC: 10D00Z1 Extraction of Products of Conception, Low, Open Approach (ICD-10-PCS; CPT 59514; principal; 2021-11-14 11:45)
DX: O34.211 Maternal care for low transverse scar from previous cesarean delivery (principal); O98.32 Other infections with a predominantly sexual mode of transmission complicating childbirth; A60.00 Herpesviral infection of urogenital system, unspecified; Z3A.39 39 weeks gestation of pregnancy; O99.892 Other specified diseases and conditions complicating childbirth; N73.6 Female pelvic peritoneal adhesions (postinfective); Z37.0 Single live birth
CPT/HCPCS: 59050; 85025; 85027; 86850; 86900; 86901; 99218; 99251; J7120; A4216; G0378; G0463; J2405